=== PATIENT | male | born 1970 | race Caucasian/White ===

== ENCOUNTER 2017-05-19 14:29 | Emergency (ER) | payer OTHER ==
[~2017-05-19] VITALS: Ht 177.8 cm; Wt 108.9 kg
[~2017-05-19 14:29] MED LIST: ACYC800 PO; ALBU90OI INH; Aspir 8181 MG PO; CLIN150 PO; CODGUAEL PO; CRUTCH4 XX; CYCL10 PO; DIAZ10 PO; DIAZ5 PO; HYDACE5 PO; HYDACE5325 PO; HYDR1TAB94 PO; IBUP800 PO; LISI5 PO; METPRE4DP PO; NAPR500 PO; Naprosyn500 MG PO; Neurontin 300300 MG PO; Norco 5-325 Ta1 EACH PO; OXYACE5T PO; Percocet 5-3251 EACH PO; TRAM50 PO; Ultram50 MG PO; Zithromax250 MG PO; Zovirax800 MG PO
[2017-05-19] MEDS ORDERED: Vibramycin100 MG PO (15:14)
[2017-05-19] MEDS ORDERED: Cheratussin AC118 ML PO (15:14)
== END 2017-05-19 15:21 | disposition home or self-care (01) ==
LOC: ER 14:29
DX: J18.9 Pneumonia, unspecified organism (principal); I10 Essential (primary) hypertension; F32.9 Major depressive disorder, single episode, unspecified; F17.210 Nicotine dependence, cigarettes, uncomplicated; Z88.8 Allergy status to other drugs, medicaments and biological substances; Z91.02 Food additives allergy status; Z79.899 Other long term (current) drug therapy
CPT/HCPCS: 71046; 99283

== ENCOUNTER 2018-02-28 05:50 | Emergency (ER) | payer OTHER ==
[~2018-02-28] VITALS: Ht 177.8 cm; Wt 95.2 kg
[~2018-02-28 05:50] MED LIST changes: +Cheratussin AC118 ML PO; +Vibramycin100 MG PO
[2018-02-28 06:34] LABS: BASOPHILS ABSOLUTE AUTO 0.08 K/mm3 (0.00-0.23); BASOPHILS PERCENT AUTO 1 % (0-2); EOSINOPHILS PERCENT AUTO 3 % (0-6); IMMATURE GRAN ABSOLUTE AUTO 0.02 K/mm3 (0.00-0.10); IMMATURE GRAN PERCENT AUTO 0 % (0-1); LYMPHOCYTES ABSOLUTE AUTO 3.23 K/mm3 (0.84-5.20); LYMPHOCYTES PERCENT AUTO 35 % (21-46); MONOCYTES ABSOLUTE AUTO 0.62 K/mm3 (0.16-1.47); MONOCYTES PERCENT AUTO 7 % (4-13); Mean Corpuscular HGB Conc 31.7 g/dL (31.5-36.5); Mean Corpuscular Volume 88 fL (80-100); Mean Platelet Volume 8.6 fL (9.1-12.4); NEUTROPHILS ABSOLUTE AUTO 5.02 K/mm3 (1.96-9.15); NEUTROPHILS PERCENT AUTO 54 % (41-73); Platelet Count 355 K/mm3 (150-400); RDW Coefficient Variation 14.6 % (11.7-14.2); Red Blood Cell Count 4.65 M/mm3 (4.30-5.90); White Blood Cell Count 9.27 K/mm3 (4.00-11.30)
[2018-02-28 06:59] LABS: Alanine Aminotransfer (ALT/SGP 23 U/L (12-78); Albumin, Blood 3.4 g/dL (3.4-5.0); Albumin/Globulin Ratio 0.9 (0.8-1.8); Alk Phos 107 U/L (50-136); Anion Gap 8 mmol/L (6-16); Aspartate Aminotrans (AST/SGOT 23 U/L (12-37); Bilirubin, Total 0.4 mg/dL (0.1-1.0); Blood Urea Nitrogen 8 mg/dL (8-24); Bun/Creatinine Ratio 12.3 (12.0-20.0); CO2, Blood 22 mmol/L (21-32); Calcium, Blood 8.4 mg/dL (8.5-10.1); Chloride, Blood 107 mmol/L (98-108); Creatinine, Blood 0.65 mg/dL (0.60-1.20); Globulin, Blood 3.7 g/dL (2.2-4.0); Glomerular Filtration Rate >60 (60-); Glucose, Blood 118 mg/dL (70-99); Potassium, Blood 3.9 mmol/L (3.5-5.5); Sodium, Blood 137 mmol/L (136-145); Total Protein, Blood 7.1 g/dL (6.4-8.2); Troponin I <0.015 ng/mL (0.000-0.040)
== END 2018-02-28 08:35 | disposition home or self-care (01) ==
LOC: ER 05:50
PROVIDERS: Emergency Medicine
DX: J11.1 Influenza due to unidentified influenza virus with other respiratory manifestations (principal); J98.11 Atelectasis; Z88.8 Allergy status to other drugs, medicaments and biological substances; Z91.02 Food additives allergy status; I10 Essential (primary) hypertension; F17.210 Nicotine dependence, cigarettes, uncomplicated
CPT/HCPCS: 36415; 71046; 80053; 83690; 84484; 85025; 93005; 93010; 96361; 96374; 96375; 99284-25; J1885; J2405; J7030

== ENCOUNTER 2019-01-05 17:21 | Emergency (ER) | payer OTHER ==
[~2019-01-05] VITALS: Ht 177.8 cm; Wt 108.0 kg
[2019-01-05] MEDS ORDERED: QUET200 PO (18:24)
[2019-01-05] MEDS ORDERED: Norco 5-325 Ta1 EACH PO (18:58)
[2019-01-05] MEDS ORDERED: Zovirax800 MG PO (18:58)
== END 2019-01-05 19:18 | disposition home or self-care (01) ==
LOC: ER 17:21
DX: B02.30 Zoster ocular disease, unspecified (principal); I10 Essential (primary) hypertension; F17.210 Nicotine dependence, cigarettes, uncomplicated; Z91.018 Allergy to other foods; Z88.8 Allergy status to other drugs, medicaments and biological substances; Z79.899 Other long term (current) drug therapy
CPT/HCPCS: 99283; A9270; A9270-GY

== ENCOUNTER 2019-01-24 15:16 | Emergency (ER) | payer OTHER ==
[~2019-01-24] VITALS: Ht 177.8 cm; Wt 104.3 kg
[~2019-01-24 15:16] MED LIST changes: +QUET200 PO
[2019-01-24 16:51] LABS: BASOPHILS ABSOLUTE AUTO 0.05 K/mm3 (0.00-0.23); BASOPHILS PERCENT AUTO 1 % (0-2); EOSINOPHILS ABSOLUTE AUTO 0.27 K/mm3 (0.00-0.68); EOSINOPHILS PERCENT AUTO 3 % (0-6); Hemoglobin 11.2 g/dL (13.5-17.5); IMMATURE GRAN ABSOLUTE AUTO 0.01 K/mm3 (0.00-0.10); IMMATURE GRAN PERCENT AUTO 0 % (0-1); LYMPHOCYTES ABSOLUTE AUTO 2.34 K/mm3 (0.84-5.20); LYMPHOCYTES PERCENT AUTO 29 % (21-46); MONOCYTES ABSOLUTE AUTO 0.48 K/mm3 (0.16-1.47); MONOCYTES PERCENT AUTO 6 % (4-13); Mean Corpuscular HGB 29.1 pg (26.0-34.0); Mean Corpuscular HGB Conc 31.1 g/dL (31.5-36.5); Mean Corpuscular Volume 94 fL (80-100); Mean Platelet Volume 8.8 fL (9.1-12.4); NEUTROPHILS ABSOLUTE AUTO 5.04 K/mm3 (1.96-9.15); NEUTROPHILS PERCENT AUTO 62 % (41-73); Platelet Count 367 K/mm3 (150-400); RDW Coefficient Variation 13.5 % (11.7-14.2); RDW Standard Deviation 46.5 fL (35.1-46.3); Red Blood Cell Count 3.85 M/mm3 (4.30-5.90); White Blood Cell Count 8.19 K/mm3 (4.00-11.30)
[2019-01-24] MEDS ORDERED: NORCO 10-325 T1 EACH PO (17:05)
[2019-01-24] MEDS ORDERED: CEPH500 PO (17:05)
[2019-01-24 17:12] LABS: Alanine Aminotransfer (ALT/SGP 26 U/L (12-78); Albumin, Blood 3.1 g/dL (3.4-5.0); Albumin/Globulin Ratio 0.8 (0.8-1.8); Alk Phos 77 U/L (50-136); Anion Gap 7 mmol/L (6-16); Aspartate Aminotrans (AST/SGOT 23 U/L (12-37); Bilirubin, Total 0.2 mg/dL (0.1-1.0); Blood Urea Nitrogen 6 mg/dL (8-24); Bun/Creatinine Ratio 8.1 (12.0-20.0); CO2, Blood 26 mmol/L (21-32); Calcium, Blood 8.3 mg/dL (8.5-10.1); Chloride, Blood 107 mmol/L (98-108); Creatinine, Blood 0.74 mg/dL (0.60-1.20); Globulin, Blood 3.8 g/dL (2.2-4.0); Glomerular Filtration Rate >60 (60-); Glucose, Blood 92 mg/dL (70-99); Potassium, Blood 3.6 mmol/L (3.5-5.5); Sodium, Blood 140 mmol/L (136-145); Total Protein, Blood 6.9 g/dL (6.4-8.2)
== END 2019-01-24 17:40 | disposition home or self-care (01) ==
LOC: ER 15:16
PROVIDERS: Physician Assistant
DX: L60.0 Ingrowing nail (principal); L03.116 Cellulitis of left lower limb; I10 Essential (primary) hypertension; F17.210 Nicotine dependence, cigarettes, uncomplicated; Z91.02 Food additives allergy status; Z88.8 Allergy status to other drugs, medicaments and biological substances; Z79.899 Other long term (current) drug therapy
CPT/HCPCS: 36415; 80053; 85025; 93971; 99284-25

== ENCOUNTER 2020-08-29 10:16 | Emergency (ER) | payer OTHER ==
[~2020-08-29] VITALS: Ht 175.3 cm; Wt 99.8 kg
[~2020-08-29 10:16] MED LIST changes: +CEPH500 PO; +CLIN300 PO; +GABA100 PO; +MIRT30; +NORCO 10-325 T1 EACH PO
[2020-08-29] MEDS ORDERED: ACET500 PO (13:15)
[2020-08-29] MEDS ORDERED: IBUP600 PO (13:15)
[2020-08-29] MEDS ORDERED: LIDO700A20 TOP (13:15)
== END 2020-08-29 13:34 | disposition home or self-care (01) ==
LOC: ER 10:16
DX: M54.5 Low back pain (principal); I10 Essential (primary) hypertension; F17.210 Nicotine dependence, cigarettes, uncomplicated; Y92.89 Other specified places as the place of occurrence of the external cause; Y99.0 Civilian activity done for income or pay
CPT/HCPCS: 72100; 96372; 99283-25; A9270; J1885

== ENCOUNTER 2021-10-09 00:55 | Emergency (ER) | payer OTHER ==
[~2021-10-09] VITALS: Ht 175.3 cm; Wt 95.2 kg
[~2021-10-09 00:55] MED LIST changes: +ACET500 PO; +BENZ100A PO; +GUAI600T33 PO; +IBUP600 PO; +LIDO700A20 TOP
[2021-10-09 03:01] LABS: BASOPHILS ABSOLUTE AUTO 0.07 K/mm3 (0.00-0.23); BASOPHILS PERCENT AUTO 1 % (0-2); EOSINOPHILS ABSOLUTE AUTO 0.21 K/mm3 (0.00-0.68); EOSINOPHILS PERCENT AUTO 2 % (0-6); Hematocrit 38.3 % (37.0-53.0); Hemoglobin 12.5 g/dL (13.5-17.5); IMMATURE GRAN ABSOLUTE AUTO 0.01 K/mm3 (0.00-0.10); IMMATURE GRAN PERCENT AUTO 0 % (0-1); LYMPHOCYTES ABSOLUTE AUTO 2.09 K/mm3 (0.84-5.20); LYMPHOCYTES PERCENT AUTO 23 % (21-46); MONOCYTES ABSOLUTE AUTO 0.63 K/mm3 (0.16-1.47); MONOCYTES PERCENT AUTO 7 % (4-13); Mean Corpuscular HGB 28.7 pg (26.0-34.0); Mean Corpuscular HGB Conc 32.6 g/dL (31.5-36.5); Mean Corpuscular Volume 88 fL (80-100); Mean Platelet Volume 8.6 fL (9.1-12.4); NEUTROPHILS ABSOLUTE AUTO 6.12 K/mm3 (1.96-9.15); NEUTROPHILS PERCENT AUTO 67 % (41-73); Platelet Count 314 K/mm3 (150-400); RDW Coefficient Variation 14.4 % (11.7-14.2); RDW Standard Deviation 46.3 fL (35.1-46.3); Red Blood Cell Count 4.35 M/mm3 (4.30-5.90); White Blood Cell Count 9.13 K/mm3 (4.00-11.30)
[2021-10-09 03:18] LABS: Albumin, Blood 3.2 g/dL (3.4-5.0); Albumin/Globulin Ratio 0.9 (0.8-1.8); Bilirubin, Total 0.5 mg/dL (0.1-1.0); Bun/Creatinine Ratio 8.6 (12.0-20.0); Calcium, Blood 8.2 mg/dL (8.5-10.1); Creatinine, Blood 0.82 mg/dL (0.60-1.20); Globulin, Blood 3.7 g/dL (2.2-4.0); Potassium, Blood 3.5 mmol/L (3.5-5.5); Total Protein, Blood 6.9 g/dL (6.4-8.2)
== END 2021-10-09 06:09 | disposition left against medical advice (07) ==
LOC: ER 00:55
PROVIDERS: Student in an Organized Health Care Education/Training Program
DX: L98.9 Disorder of the skin and subcutaneous tissue, unspecified (principal); Z53.21 Procedure and treatment not carried out due to patient leaving prior to being seen by health care provider
CPT/HCPCS: 36415; 80053; 85025

== ENCOUNTER 2021-10-14 16:30 | Emergency (ER) | payer OTHER ==
[~2021-10-14] VITALS: Ht 175.3 cm; Wt 86.2 kg
[2021-10-14] MEDS ORDERED: SULTRIDS PO (17:13)
== END 2021-10-14 17:25 | disposition home or self-care (01) ==
LOC: ER 16:30
DX: S00.86XA Insect bite (nonvenomous) of other part of head, initial encounter (principal); I10 Essential (primary) hypertension; F17.210 Nicotine dependence, cigarettes, uncomplicated; Z91.018 Allergy to other foods; Z88.8 Allergy status to other drugs, medicaments and biological substances; Z79.899 Other long term (current) drug therapy; W57.XXXA Bitten or stung by nonvenomous insect and other nonvenomous arthropods, initial encounter
CPT/HCPCS: 99283; A9270

== ENCOUNTER 2022-01-30 00:46 | Emergency (ER) | payer OTHER ==
[~2022-01-30] VITALS: Ht 175.3 cm; Wt 86.2 kg
[~2022-01-30 00:46] MED LIST changes: +SULTRIDS PO
[2022-01-30] MEDS ORDERED: Bactrim Ds Tab1 EACH PO (05:58)
[2022-01-30] MEDS ORDERED: Keflex250 MG PO (05:58)
== END 2022-01-30 06:22 | disposition home or self-care (01) ==
LOC: ER 00:46
DX: L02.415 Cutaneous abscess of right lower limb (principal); I10 Essential (primary) hypertension; Z91.018 Allergy to other foods; Z88.8 Allergy status to other drugs, medicaments and biological substances; Z79.899 Other long term (current) drug therapy
CPT/HCPCS: A9270; J1885

== ENCOUNTER 2022-02-25 19:53 | Emergency (ER) | payer OTHER ==
[~2022-02-25] VITALS: Ht 177.8 cm; Wt 86.2 kg
[~2022-02-25 19:53] MED LIST changes: +Bactrim Ds Tab1 EACH PO; +Keflex250 MG PO
[2022-02-25 21:13] LABS: Influenza A, PCR NEGATIVE (NEGATIVE); Influenza B, PCR NEGATIVE (NEGATIVE); Resp Syncytial Virus, PCR NEGATIVE (NEGATIVE); SARS-Cov-2 (COVID-19) PCR, MMC NEGATIVE (NEGATIVE)
== END 2022-02-25 21:53 | disposition home or self-care (01) ==
LOC: ER 19:53
PROVIDERS: Physician Assistant
DX: R05.9 Cough, unspecified (principal); R53.1 Weakness; Z53.21 Procedure and treatment not carried out due to patient leaving prior to being seen by health care provider
CPT/HCPCS: 0241U

== ENCOUNTER 2022-02-26 11:22 | Emergency (ER) | payer OTHER ==
[~2022-02-26] VITALS: Ht 177.8 cm; Wt 86.2 kg
== END 2022-02-26 12:45 | disposition home or self-care (01) ==
LOC: ER 11:22
DX: F11.23 Opioid dependence with withdrawal (principal); Z91.018 Allergy to other foods; Z88.8 Allergy status to other drugs, medicaments and biological substances; I10 Essential (primary) hypertension; G62.9 Polyneuropathy, unspecified; F17.210 Nicotine dependence, cigarettes, uncomplicated
CPT/HCPCS: 93005; 93010; A9270

== ENCOUNTER 2022-03-14 09:24 | Emergency (ER) | payer OTHER ==
[~2022-03-14] VITALS: Ht 172.7 cm; Wt 81.7 kg
== END 2022-03-14 10:05 ==
LOC: ER 09:24
DX: F11.10 Opioid abuse, uncomplicated (principal); I10 Essential (primary) hypertension; F17.210 Nicotine dependence, cigarettes, uncomplicated; G62.9 Polyneuropathy, unspecified; Z88.8 Allergy status to other drugs, medicaments and biological substances
CPT/HCPCS: 99284